=== PATIENT | female | born 1980 | race African-American/Black ===

== ENCOUNTER 2017-01-11 09:39 | Emergency (ER) | payer BC, MEDICAID, OTHER ==
[~2017-01-11] VITALS: Ht 170.2 cm; Wt 87.0 kg
[2017-01-11 11:42] LABS: BASOPHILS % 0.2 % (0.0-2.0); EOSINOPHILS % 0.4 % (0.0-5.0); HEMATOCRIT. 33.3 % (36.0-48.0); HEMOGLOBIN. 11.2 g/dL (12.0-16.0); LYMPHOCYTES % 24.7 % (20.0-50.0); MEAN CORPUSCULAR VOLUME 86.5 fL (81.0-99.0); MEAN PLATELET VOLUME 8.3 fl (7.4-10.4); MONOCYTES % 10.4 % (2.0-8.0); NEUTROPHILS % 64.3 % (40.0-76.0); PLATELET 189 x1000/uL (130-400); RED BLOOD CELL COUNT 3.85 mill/uL (4.2-5.4); RED CELL DISTRIBUTION WIDTH 15.2 % (11.6-14.6)
[2017-01-11 12:04] LABS: CARBON DIOXIDE 26 mEq/L (21-32); CHLORIDE 106 mEq/L (98-107)
[2017-01-11 12:12] LABS: B-HCG QUANTITATIVE 13745 mIU/mL (<3)
[2017-01-11 12:38] LABS: CLARITY URINE CLEAR (CLEAR); COLOR URINE YELLOW (YELLOW); GLUCOSE URINE NEGATIVE (NEGATIVE); KETONES URINE NEGATIVE (NEGATIVE); LEUKOCYTE ESTERASE URINE 1+ (NEGATIVE); NITRITE URINE NEGATIVE (NEGATIVE); OCCULT BLOOD URINE 1+ (NEGATIVE); PROTEIN URINE NEGATIVE (NEGATIVE); SPECIFIC GRAVITY URINE 1.009 (1.005-1.030); UROBILINOGEN URINE 0.2 E.U./dL (0.2-1.0)
[2017-01-11] MEDS ORDERED: ONDANSETRON 4MG ODT PO ONE (13:45)
[2017-01-11] MEDS ORDERED: METRONIDAZOLE 500MG TABLET PO ONE (13:45)
[2017-01-11 14:15] VITALS: BP 126/71
== END 2017-01-11 14:33 | disposition home or self-care (01) ==
LOC: ER 14:03
DX: O20.0 Threatened abortion (principal); O26.892 Other specified pregnancy related conditions, second trimester; A59.9 Trichomoniasis, unspecified; Z90.49 Acquired absence of other specified parts of digestive tract
CPT/HCPCS: 36415; 76805; 80048; 81001; 81025; 84702; 85025; 86850; 86900; 86901; 99285; Q0162